=== PATIENT | male | born 1970 | race Caucasian/White ===

== ENCOUNTER 2024-10-21 04:31 | Emergency (ER) | payer OTHER, SELFPAY ==
[2024-10-21 04:34] VITALS: BP 141/78; BP 143/112; BMI 36.6
[2024-10-21 04:40] LABS: Glucose - Point of Care 128 mg/dl (70-99)
[2024-10-21 06:11] LABS: Glucose - Point of Care 81 mg/dl (70-99)
--- NOTE | 2024-10-21 06:23 | ED.GENMED ---
History of Present Illness
General
Chief Complaint: Blood Sugar Problem
Time Seen by Provider: 10/21/24 06:23
History of Present Illness
History of Present Illness:
TIME OF INITIAL ENCOUNTER: 6:20 AM
HPI: The patient has history of IDDM on insulin pump and his roommate heard BP indicated low blood sugar. He was combative. EMS noted blood sugar of 29 and was given IM glucagon. As I evaluated the patient (currently with blood sugar in the 80s)
he has no further complaints. He feels improved and comfortable going home. He states that he had somewhat less than normal to eat yesterday. He has not had any changes to his insulin dosing.
EXAM:
GENERAL: Well appearing in no distress, elevated BMI
HEENT: Moist oral mucosa
CARDIOVASCULAR: No murmurs, normal heart rate, regular rhythm, No chest wall tenderness
PULMONARY: No respiratory distress, breath sounds are clear and equal
ABDOMEN: Soft with no peritoneal signs, no tenderness
NEUROLOGIC: Excellent strength all extremities, no coordination deficits
PSYCHIATRIC: Appropriate mental status, normal insight and judgement
EXTREMITIES: Nontender, no edema, moves all extremities equally
SKIN: No rash, no lesions
NUMBER AND COMPLEXITY OF PROBLEMS ADDRESSED AT THE ENCOUNTER
� Chronic conditions affecting care: IDDM on insulin pump
� Acute Exacerbation and/or Progression of Chronic Illness: This is an acute problem
� Differential Diagnosis includes: Hypoglycemia, pump malfunction, inadequate p.o. intake
AMOUNT AND/OR COMPLEXITY OF DATA TO BE REVIEWED AND ANALYZED
� I performed an independent evaluation of and my interpretation is:
EKG:
CT:
X-rays:
Laboratory Studies: Patient's blood sugar is 81
Other:
� Review of other/old records: I reviewed records, the patient was seen here just 3 and at that time he was confused/disoriented and was found to be hypoglycemic and was given D50 at that time.
� Clinical information was obtained by an independent historian: None needed
� Prescriptions/Medications Considered but not given:
� Further testing considered but not performed:
RISK OF COMPLICATIONS AND/OR MORBIDITY OR MORTALITY OF PATIENT MANAGEMENT
� Social determinants of health affecting care: Lives at home
� Discussion with other providers:
� Escalation of care including admission/observation vs risk of discharge considered: At 6:30 AM, the patient has no symptoms. His Dexcom is reading around 82. Blood sugar here is 81. He feels comfortable going home. I
encouraged him to be sure to eat plenty of food today.
ANY OTHER UPDATES:
Past History
Past History
ED Past Medical History: IDDM
Social History
Tobacco: Non-smoker
Alcohol: Occasional
Family History
Family History: CAD and Other (Mother with breast cancer)
Phy Exam
Physical Exam
Physical Exam:
See HPI
Course
Orders/Labs/Results
Orders:
Abnormal Lab Results
10/21/24
04:39
POC Glucose 128 H mg/dl
(70-99)
Vital Signs
Initial and Last Documented VS:
Initial Vital Signs
Temp Pulse Resp BP Pulse Ox
36.6 C 102 17 143/112 98
10/21/24 04:34 10/21/24 04:34 10/21/24 04:34 10/21/24 04:34 10/21/24 04:34
Last Documented Vital Signs
Temp Pulse Resp BP Pulse Ox
36.6 C 102 17 141/78 98
10/21/24 04:34 10/21/24 04:34 10/21/24 04:34 10/21/24 04:34 10/21/24 04:34
*Critical Care Note
Total Time (30-74mins, 75-104mins- exclusive of procedures): Not Applicable
ED Attending Note
-
Portions of this chart may have been created with voice recognition software.� Occasional wrong word or��sound alike� substitutions may have occurred due to the inherent limitations of voice recognition software.
Discharge Plan
Departure
Patient Disposition: Home (Routine Discharge)
Date of Disposition: 10/21/24
Time of Disposition: 06:32
Patient with high blood pressure during this ER visit?: Yes
Discharge Problem:
Hypoglycemia
Instructions: Low blood sugar in people with diabetes, BLOOD PRESSURE
Prescriptions:
No Action
insulin lispro [Humalog U-100 Insulin] 100 UNIT/1 ML cartridge
16 unit SQ TID
Levemir
21 units BID
Referrals:
Michael Brewster DO [Family Provider, Internal Medicine]
Activity Restrictions/Additional Instructions:
Be sure to eat plenty of food today. Return here if worse or other concerns. Follow-up with your doctors.
Interventions
Interventions:
*General Assessment Last Done: 10/21/24 04:34
*Neglect/Abuse Screening Last Done: 10/21/24 04:34
*ED- Fall Risk Assessment Last Done: 10/21/24 04:34
*ED COVID-19 Vaccine History Last Done: 10/21/24 04:34
ED- Neurological Assessment Last Done: 10/21/24 04:34
Discharge Date and Time
Print Language: TUVALU[place]
[2024-10-21 07:00] VITALS: BP 135/92
== END 2024-10-21 07:02 | disposition home or self-care (01) ==
LOC: EMR 04:31
PROVIDERS: EMERGENCY PHYSICIAN Emergency Medicine; FAMILY PHYSICIAN Internal Medicine Endocrinology, Diabetes & Metabolism
DX: E11.649 Type 2 diabetes mellitus with hypoglycemia without coma (principal); Z79.4 Long term (current) use of insulin; Z96.41 Presence of insulin pump (external) (internal)
CPT/HCPCS: 99283; 82962